=== PATIENT | male | born 1940 | race African-American/Black ===

== ENCOUNTER 2019-08-05 22:22 | Inpatient (IN) | payer MEDICARE, MEDICAID ==
[2019-08-05] MEDS ORDERED: Morphine 4 MG/ML VIAL ONE (23:07)
[2019-08-05] MEDS ORDERED: Ondansetron PF 4 MG/2 ML Vial ONE (23:07)
[2019-08-05 23:23] LABS: #Lymphocytes 1.3 thou/uL (1.20-3.40); #Monocytes 0.5 thou/uL (0.11-0.59); #Neutrophils 4.7 thou/uL (1.40-6.50); %Basophils 0.5 % (0.0-1.0); %Eosinophils 0.3 % (0.0-10.0); %Lymphocytes 20.1 % (21.0-51.0); %Monocytes 6.9 % (0.0-10.0); %Neutrophils 72.2 % (42.0-75.0); Hemoglobin 8.4 g/dL (14.0-18.0); Mean Corpuscular HGB CONC 32.2 g/dL (32.0-36.0); Mean Corpuscular Hemoglobin 30.8 pg (27.0-31.0); Mean Corpuscular Volume 95.4 fL (78.0-98.0); Mean Platelet Volume 7.7 fL (7.4-10.4); Platelet Count 294 thou/uL (130-400); RBC Distribution Width 20.9 % (11.5-14.5); Red Blood Cell (RBC) Count 2.71 mill/uL (4.70-6.10); White Blood Cell (WBC) Count 6.6 thou/uL (4.8-10.8)
--- NOTE | 2019-08-06 00:26 | HP ---
CHIEF COMPLAINT: Abdominal pain. HISTORY OF PRESENT ILLNESS: This is an 79-year-old male, who presents with a history of diffuse abdominal tenderness associated with nausea. He vomited prior to presenting to the other emergency room, transferred here after CT scan shows incarcerated likely strangulated ventral hernia. The hernia was able to be reduced by the nurse practitioner in the emergency room. He feels better. CT scan showed small bowel in both the ventral and umbilical hernias. The patient is known he had these hernias for a while, they have never been symptomatic before. Of note, he is found to be chronically anemic. He cannot remember the last time he has had a colonoscopy. He states that it had been several years. Primary care physician is Dr. Delgado at [facility]. PAST MEDICAL HISTORY: Includes hypertension; and COPD, on home O2. SURGICAL HISTORY: Inguinal hernia. MEDICATIONS: Taken daily: 1. Enalapril. 2. Potassium. SOCIAL HISTORY: No smoking, alcohol, or other drugs. REVIEW OF SYSTEMS: 10-system review of systems is otherwise negative as described above. PHYSICAL EXAMINATION: HEENT: Sclerae are anicteric. Oropharynx clear. NECK: No lymphadenopathy. CHEST: Clear. HEART: Regular rate. ABDOMEN: Soft, nontender except for the area of the ventral hernia. The hernia is mostly reducible. There is likely some persistent umbilical fat in the hernia. The umbilical hernia is reducible. He does have bowel sounds. EXTREMITIES: No ischemia or edema to extremities. LABORATORY DATA: White blood cell count is 6, hemoglobin 8.4, platelet count is 294. Review of his labs from other hospital revealed there to be a UTI. His creatinine is 1.63, potassium is 4.4. ASSESSMENT: 1. Incarcerated ventral hernia. 2. Chronic obstructive pulmonary disease. 3. Hypertension. 4. Urinary tract infection. PLAN: We will admit to the hospital. This does not have to be done tonight now that it has been reduced. However, he is high risk for recurrence and potential incarceration strangulation, so I would recommend repair. We will put him on IV antibiotics for now for the UTI. Normally would hold off on repair of this in the setting of UTI. However, he is high risk for recurrence given with a COPD and chronic cough and the fact that the omental fat is not completely reducible on exam and then we will turn him back over to Dr. Delgado for outpatient workup for his low hemoglobin. Job ID: [id number]
[2019-08-06] MEDS ORDERED: Ondansetron ODT 4 MG TAB SL PRN (00:53)
[2019-08-06] MEDS ORDERED: Ondansetron PF 4 MG/2 ML Vial IVP PRN ×2 (00:53→01:03)
[2019-08-06] MEDS ORDERED: Sodium Chloride 0.9% 1,000 ML IV SCH (00:53)
[2019-08-06] MEDS ORDERED: Morphine 2 MG/ML SYRINGE SLOW IVP PRN ×2 (00:54→01:03)
[2019-08-06] MEDS ORDERED: Promethazine HCl 25 MG/ML VIAL IM PRN ×2 (01:03→11:37)
[2019-08-06] MEDS ORDERED: hydrALAZINE 20 MG/ML VIAL SLOW IVP PRN (01:03)
[2019-08-06] MEDS ORDERED: Morphine 4 MG/ML VIAL SLOW IVP PRN (01:03)
[2019-08-06] MEDS ORDERED: Dextrose 5% in Water 1,000 ML IV PRN (01:03)
[2019-08-06] MEDS ORDERED: Dextrose 50% Abboject 50 ML SYRINGE SLOW IVP PRN (01:03)
[2019-08-06] MEDS: Sodium Chloride 0.9% 1,000 ML IV SCH ×2 (01:20→21:15)
[2019-08-06 01:58] VITALS: BMI 24.1
[2019-08-06] MEDS: cefOXitin Sodium/Dextrose,Iso 2 GM in Premix Bag 1 BAG IVPB SCH ×3 (06:17→21:06)
[2019-08-06] MEDS: Famotidine/PF 20 mg/2ml Vial SLOW IVP SCH ×2 (08:33→20:57)
[2019-08-06] MEDS: Famotidine 20 MG TAB PO SCH ×2 (08:33→21:06)
[2019-08-06] MEDS: Lisinopril 10 MG TAB PO SCH ×2 (08:34→21:06)
[2019-08-06] MEDS ORDERED: EPHEDRINE 25 MG/5 ML SYRINGE ONE (09:12)
[2019-08-06] MEDS ORDERED: Dexamethasone 20 MG/5 ML VIAL ONE (09:12)
[2019-08-06] MEDS ORDERED: Lidocaine 1% PF 5 ML VIAL ONE (09:12)
[2019-08-06] MEDS ORDERED: Rocuronium Bromide 10 MG/ML (10ML VIAL) ONE (09:12)
[2019-08-06] MEDS ORDERED: Ondansetron PF 4 MG/2 ML Vial ONE (09:12)
[2019-08-06] MEDS ORDERED: Succinylcholine Chloride 20 MG/ML 10 ml SYRINGE FS ONE (09:12)
[2019-08-06] MEDS ORDERED: PROPOFOL 200 MG/20 ML VIAL ONE (09:12)
[2019-08-06] MEDS ORDERED: Glycopyrrolate 0.2 MG/ML 5 ML SYRINGE ONE (09:12)
[2019-08-06] MEDS ORDERED: PHENYLEPHRINE-NS 100 MCG/ML 10 ML SYRINGE ONE (09:12)
[2019-08-06] MEDS ORDERED: Bupivacaine 0.25% HCL 30 ML VIAL ONE (09:51)
[2019-08-06] MEDS ORDERED: Lidocaine 1% w/Epinephrine 1:100K 20 ML VIAL ONE (09:51)
[2019-08-06] MEDS ORDERED: Fentanyl 100 MCG/2 ML VIAL ONE (09:54)
[2019-08-06] MEDS ORDERED: Lidocaine 2% Jelly 5 ML TUBE ONE (09:55)
[2019-08-06] MEDS ORDERED: Albuterol Sulfate HFA (OR ONLY) ONE (10:06)
[2019-08-06] MEDS ORDERED: SUGAMMADEX SODIUM 200 MG/2 ML VIAL ONE (11:26)
[2019-08-06] MEDS ORDERED: Promethazine HCl 25 MG/ML VIAL SLOW IVP PRN (11:37)
[2019-08-06] MEDS ORDERED: Ondansetron HCl/PF 4 MG/2 ML Vial IVP PRN (11:37)
--- NOTE | 2019-08-06 17:09 | OP ---
DATE OF PROCEDURE: 08/06/2019 PREOPERATIVE DIAGNOSES: 1. Incarcerated ventral hernia. 2. Umbilical hernia. POSTOPERATIVE DIAGNOSES: 1. Incarcerated ventral hernia. 2. Umbilical hernia. PROCEDURES PERFORMED: 1. Incarcerated ventral hernia repair with mesh, Ventralex ST small. 2. Umbilical hernia repair with mesh, Ventralex ST small. ANESTHESIA: General. ESTIMATED BLOOD LOSS: Minimal. COMPLICATIONS: None. FINDINGS: Ventral hernia, incarcerated with omental fat. Nonincarcerated umbilical hernia. DESCRIPTION OF PROCEDURE: The patient was taken to the operating room and laid supine on the operating room table. After general anesthetic was obtained, the abdomen was prepped and draped in a sterile fashion. A straight incision was made above the ventral hernia. Dissection taken down to the hernia. The hernia sac was opened, revealed no bowel. It had been reduced last night in the emergency room. The omental fat was placed back down into the abdominal cavity. The preperitoneal fat was bluntly dissected from the backside of the fascia. The Ventralex ST small mesh brought into the sterile field. The underlay was placed in the abdominal cavity. The tails were laid out laterally. Tails were sewn via U-stitch of permanent braided suture to the edges of the fascia. The fascia was closed loosely over the mesh using PDS. The wound was irrigated copiously. Local anesthetic was applied. It was closed using 3-0 Vicryl, 4-0 Monocryl, and Dermabond. Next, a curved incision was made above the umbilicus, cautery dissected down to the fascia. The umbilical stalk was amputated, exposing the umbilical defect. There was a small bowel in the hernia, but this was easily reduced. Again, the posterior fascia was dissected bluntly. The Ventralex ST small mesh was brought into the sterile field, placed into the abdominal cavity and its tails pulled up laterally and sewn via U-stitch of permanent braided suture to the edges of the fascia. The fascia was closed loosely over the mesh using PDS. The wound was irrigated. The umbilical stalk was tacked back down using 3-0 Vicryl. The wound was irrigated and closed using 4-0 Monocryl and Dermabond. The patient was sent to Recovery in stable condition. All instrument counts, needle counts, and lap counts were correct. Job ID: [id number]
[2019-08-07] MEDS: HYDROcodone/Acetaminophen 10/325 mg Tablet PO PRN ×2 (02:42→09:17)
[2019-08-07] MEDS: cefOXitin Sodium/Dextrose,Iso 2 GM in Premix Bag 1 BAG IVPB SCH (05:37)
[2019-08-07 08:13] VITALS: TEMP 98.4
[2019-08-07] MEDS ORDERED: Tamsulosin HCl 0.4 MG CAP PO SCH (09:00)
[2019-08-07] MEDS ORDERED: Meloxicam 15 MG TAB PO SCH (09:00)
[2019-08-07] MEDS: Famotidine 20 MG TAB PO SCH (09:10)
[2019-08-07] MEDS: Famotidine/PF 20 mg/2ml Vial SLOW IVP SCH (09:11)
[2019-08-07] MEDS: Lisinopril 10 MG TAB PO SCH (09:11)
[2019-08-07 09:12] VITALS: BP 134/89
--- NOTE | 2019-08-07 13:32 | DIS ---
DATE OF ADMISSION: 08/06/2019 DATE OF DISCHARGE: 08/07/2019 ADMITTING DIAGNOSIS: Incarcerated ventral hernia. DISCHARGE DIAGNOSIS: Incarcerated ventral hernia. PROCEDURES: Incarcerated ventral hernia repair with mesh and umbilical hernia repair with mesh by Dr. Penaloza without complication. CONDITION ON DISCHARGE: Improved. STAFF: Nathen Penaloza MD HOSPITAL COURSE: On postop day 1, the patient is doing well. His pain is controlled. He is tolerating regular diet. He has been up and around. He is being discharged home. He usually gets his hydrocodone from physician in [place]. I wrote him for one week's worth until he can get back over there to get his normal supply. I also wrote for Jan. He will follow up with me in the office in 2 weeks. Job ID: [id number]
== END 2019-08-07 10:50 | disposition home or self-care (01) | DRG 354 ==
LOC: ERS 22:22 → SURG A 08-06 00:01 → ERS 08-06 00:45
PROVIDERS: ADMIT Surgery; ATTEND Surgery
PROC: 0WUF0JZ Supplement Abdominal Wall with Synthetic Substitute, Open Approach (ICD-10-PCS; principal; 2019-08-06)
DX: K43.6 Other and unspecified ventral hernia with obstruction, without gangrene (principal); N39.0 Urinary tract infection, site not specified; J44.9 Chronic obstructive pulmonary disease, unspecified; I10 Essential (primary) hypertension; K42.9 Umbilical hernia without obstruction or gangrene
CPT/HCPCS: 36415; 86850; 86900; 86901; 93005; 93010; 96374; 96375; J0694; J1100; J2001; J2270; J2405; J2704; J3010; S0020; S0028